=== PATIENT | female | born 1995 | race African-American/Black ===

== ENCOUNTER 2017-01-25 15:27 | Emergency (ER) | payer MEDICAID, OTHER ==
[~2017-01-25] VITALS: Ht 170.2 cm; Wt 72.6 kg
[2017-01-25 15:48] VITALS: BP 127/79
[2017-01-25] MEDS ORDERED: AMOXICILLIN500 MG ORAL (16:09)
[2017-01-25] MEDS ORDERED: PREDNISONE20 MG ORAL (16:09)
--- NOTE | 2017-01-25 17:46 | Emergency Room Report ---
History of Present Illness General Chief Complaint: Sore Throat Source: Patient Present Illness HPI The patient is a 21-year-old female presenting for sore throat and subjective fever for the past 10 days. She admits to a sick contact who was diagnosed with strep throat on this time. Pain described as an 8/10 dull ache and does not radiate. Worse with swallowing. She also admits to infrequent productive cough with yellow sputum. She denies any other symptoms including N, V, rash, RODRIGUEZ, dizziness, SOB Allergies: Coded Allergies: ASPIRIN (Unverified Allergy, Unknown, 01/25/17) Uncoded Allergies: ASPRIN (Allergy, Unknown, 01/25/17) Patient History Past Medical History: see triage record Pertinent Family History: none Last Menstrual Period: 01/09/17 Reviewed Nursing Documentation: PMH: Agreed, PSxH: Agreed Nursing Documentation-PMH Past Medical History: No Stated History Review of Systems All Other Systems: negative except mentioned in HPI Physical Exam Vital Signs Date Time Temp Pulse Resp B/P Pulse Ox O2 Delivery O2 Flow Rate FiO2 01/25/17 15:39 98.6 85 16 130/76 97 Room Air Sp02 EP Interpretation: reviewed, normal General Appearance: no apparent distress, alert, GCS 15, non-toxic Head: normocephalic, atraumatic Eyes: bilateral eye PERRL, bilateral eye normal inspection ENT: hearing grossly normal, no angioedema, normal voice, TMs + canals normal, uvula midline, tonsillar swelling, pharyngeal erythema, tonsillar exudate Neck: full range of motion, supple/symm/no masses Respiratory: chest non-tender, lungs clear, normal breath sounds, speaking full sentences Gastrointestinal: normal bowel sounds, non tender, soft, non-distended, no guarding, no rebound Genitourinary: normal inspection, no CVA tenderness Musculoskeletal: back normal, gait/station normal, normal range of motion, non- tender Neurologic: alert, oriented x3, responsive, motor strength/tone normal, sensory intact, speech normal Psychiatric: judgement/insight normal, memory normal, mood/affect normal, no suicidal/homicidal ideation Skin: normal color, no rash, warm/dry, well hydrated Medical Decision Making PA Attestation Dr. Hernández is my supervising physician. Patient management was discussed with my supervising physician Diagnostic Impression: Primary Impression: Pharyngitis, acute Qualified Codes: J02.9 - Acute pharyngitis, unspecified ER Course The patient is a 21-year-old female presenting for sore throat and subjective fever Differential diagnosis include but not limited to pharyngitis, sinusitis, AOM, bronchitis, PNA Physical exam: Vitals within normal limits. Afebrile. No apparent distress HEENT exam: There is bilateral tonsillar edema, erythema, and exudate. Uvula midline. Moist mucous membranes. There is bilateral cervical lymphadenopathy. Lungs are clear to auscultation bilaterally Skin is warm and dry. No rash The patient will be discharged home with a prescription for amoxicillin and prednisone and is given ER precautions. Patient will followup with primary care Last Vital Signs Date Time Temp Pulse Resp B/P Pulse Ox O2 Delivery O2 Flow Rate FiO2 01/25/17 16:15 98.4 87 15 127/79 98 Room Air Status: improved Disposition: HOME, SELF-CARE Condition: Improved Scripts Prednisone* (PREDNISONE*) 20 Mg Tablet 40 MG ORAL DAILY, #10 TAB Prov: DURGA PATEL 01/25/17 Amoxicillin* (AMOXIL*) 500 Mg Capsule 500 MG ORAL Q12HR, #20 CAP Prov: DURGA PATEL.A. 01/25/17 Referrals: [facility] (PCP) Patient Instructions: Pharyngitis Additional Instructions: I discussed my findings with the patient. All questions and concerns have been answered. Treatment and medication compliance have been addressed. I advised the patient that they need to follow up with PMD in 3-5 days. Return to ED if pain remains or worsens, cough worsens or remains, you notice blood in your sputum, you notice wheezing, you experience a fever, or if needed for any reason. Patient verbalized understanding of discharge instructions. DURGA PATEL Jan 25, 2017 17:46
== END 2017-01-25 16:16 | disposition home or self-care (01) ==
LOC: EMR 16:00
DX: J02.9 Acute pharyngitis, unspecified (principal); Z88.6 Allergy status to analgesic agent
CPT/HCPCS: 99284

== ENCOUNTER 2017-05-19 11:55 | Emergency (ER) | payer SELFPAY ==
[~2017-05-19] VITALS: Ht 170.2 cm; Wt 81.6 kg
[~2017-05-19 11:55] MED LIST: AMOXICILLIN500 MG ORAL; PREDNISONE20 MG ORAL
[2017-05-19 12:15] VITALS: BP 136/85
--- NOTE | 2017-05-19 12:19 | Emergency Room Report ---
History of Present Illness General Chief Complaint: Abdominal Pain Source: Patient Present Illness HPI The patient is a 22-year-old female who denies any medical history presenting for abd pain, nausea, vomiting, and diarrhea for the past 3 days. Pain is described as a 5/10 dull ache to the midabdomen and does not radiate. No known provoking or relieving factors. She states that she has had several episodes of vomiting and diarrhea daily. She denies any recent travel or known sick contacts. She denies any other symptoms including fever, chills, chest pain, shortness of breath, back pain, melena, hematochezia, dysuria, hematuria, vaginal DC LNMP 04/08/2017 and she states she has irregular periods. Allergies: Coded Allergies: ASPIRIN (Unverified Allergy, Severe, Hives, 05/19/17) Patient History Past Medical History: see triage record Pertinent Family History: none Last Menstrual Period: 04/08 Now: No Immunizations: UTD Reviewed Nursing Documentation: PMH: Agreed, PSxH: Agreed Nursing Documentation-PMH Past Medical History: No Stated History Review of Systems All Other Systems: negative except mentioned in HPI Physical Exam Vital Signs Date Time Temp Pulse Resp B/P (MAP) Pulse Ox O2 Delivery O2 Flow Rate FiO2 05/19/17 12:04 98.1 80 18 136/85 98 Room Air Sp02 EP Interpretation: reviewed, normal General Appearance: no apparent distress, alert, GCS 15, non-toxic Head: normocephalic, atraumatic Eyes: bilateral eye normal inspection, bilateral eye PERRL ENT: hearing grossly normal, normal pharynx, no angioedema, normal voice Neck: full range of motion, supple/symm/no masses Respiratory: chest non-tender, lungs clear, normal breath sounds, speaking full sentences Cardiovascular #1: regular rate, rhythm, no edema Gastrointestinal: normal bowel sounds, soft, non-distended, no guarding, tenderness - epigastric Rectal: deferred Genitourinary: normal inspection, no CVA tenderness Musculoskeletal: back normal, gait/station normal, normal range of motion, non- tender Neurologic: alert, oriented x3, responsive, motor strength/tone normal, sensory intact, speech normal Psychiatric: judgement/insight normal, memory normal, mood/affect normal, no suicidal/homicidal ideation Skin: normal color, no rash, warm/dry, well hydrated Lymphatic: no adenopathy Medical Decision Making PA Attestation Dr. Simms is my supervising physician. Patient management was discussed with my supervising physician Diagnostic Impression: Primary Impression: Qualified Codes: Z34.90 - Encounter for supervision of normal , unspecified, unspecified trimester Additional Impression: Urinary tract infection affecting ER Course The patient is a 22-year-old female who denies any medical history presenting for abd pain, nausea, vomiting, and diarrhea for the past 3 days. Differential diagnoses considered include but not limited to , threatened , incomplete , ectopic , hemorrhagic cyst, UTI, among others PE: vitals WNL. NAD Abdomen is soft. Nondistended. Normal bowel sounds. There is tenderness to palpation over epigastric region only. No CVA tenderness Blood work is remarkable for beta-hCG markedly elevated as well as urinalysis consistent with urinary tract infection The patient was informed of this and needs to have repeat of beta hCG in 48 hours. She is discharged home with prescription for antibiotics and vitamins. She needs to follow up with OB as soon as possible. ER precautions given Laboratory Tests Test 05/19/17 12:07 05/19/17 12:20 Urine Color Yellow Urine Appearance Slightly cloudy Urine pH 6 (4.5-8.0) Urine Specific [place] 1.020 (1.005-1.035) Urine Protein 2+ (NEGATIVE) H Urine Glucose (UA) Negative (NEGATIVE) Urine Ketones 1+ (NEGATIVE) H Urine Occult Blood 2+ (NEGATIVE) H Urine Nitrite Negative (NEGATIVE) Urine Bilirubin Negative (NEGATIVE) Urine Urobilinogen 4 MG/DL (0.0-1.0) H Urine Leukocyte Esterase 2+ (NEGATIVE) H Urine RBC 2-4 /HPF (0 - 2) H Urine WBC 5-10 /HPF (0 - 2) H Urine Squamous Epithelial Cells Many /LPF (NONE/OCC) H Urine Bacteria Few /HPF (NONE) Urine Mucus Many /LPF (NONE/OCC) H Urine HCG, Qualitative Positive White Blood Count 7.6 K/UL (4.8-10.8) Red Blood Count 4.47 M/UL (4.20-5.40) Hemoglobin 14.0 G/DL (12.0-16.0) Hematocrit 41.6 % (37.0-47.0) Mean Corpuscular Volume 93 FL (80-99) Mean Corpuscular Hemoglobin 31.4 PG (27.0-31.0) H Mean Corpuscular Hemoglobin Concent 33.7 G/DL (32.0-36.0) Red Cell Distribution Width 10.8 % (11.6-14.8) L Platelet Count 218 K/UL (150-450) Mean Platelet Volume 7.6 FL (6.5-10.1) Neutrophils (%) (Auto) 52.4 % (45.0-75.0) Lymphocytes (%) (Auto) 38.4 % (20.0-45.0) Monocytes (%) (Auto) 7.8 % (1.0-10.0) Eosinophils (%) (Auto) 0.3 % (0.0-3.0) Basophils (%) (Auto) 1.1 % (0.0-2.0) Prothrombin Time 10.7 SEC (9.30-11.50) Prothrombin Time INR 1.0 (0.9-1.1) PTT 30 SEC (23-33) Sodium Level 138 MMOL/L (136-145) Potassium Level 3.5 MMOL/L (3.5-5.1) Chloride Level 104 MMOL/L (98-107) Carbon Dioxide Level 24 MMOL/L (21-32) Anion Gap 10 mmol/L (5-15) Blood Urea Nitrogen 7 mg/dL (7-18) Creatinine 0.8 MG/DL (0.55-1.30) Estimate Glomerular Filtration Rate > 60 mL/min (>60) Glucose Level 88 MG/DL (74-106) Calcium Level 9.3 MG/DL (8.5-10.1) Total Bilirubin 1.0 MG/DL (0.2-1.0) Aspartate Amino Transferase (AST) 16 U/L (15-37) Alanine Aminotransferase (ALT) 16 U/L (12-78) Alkaline Phosphatase 63 U/L (46-116) Total Protein 8.0 G/DL (6.4-8.2) Albumin 4.0 G/DL (3.4-5.0) Globulin 4.0 g/dL Albumin/Globulin Ratio 1.0 (1.0-2.7) Lipase 99 U/L (73-393) Human Chorionic Gonadotropin, Quant 87352 mIU/mL (1-6) H Lab Results Impression CBC, CMP unremarkable UA shows infection beta-hCG elevated Last Vital Signs Date Time Temp Pulse Resp B/P (MAP) Pulse Ox O2 Delivery O2 Flow Rate FiO2 05/19/17 12:04 98.1 80 18 136/85 98 Room Air Status: improved Scripts Vit/Iron Fumarate/Fa ( VITAMINS TABLET) 1 Each Tablet 1 EACH PO DAILY, #30 TAB Prov: DURGA PATEL 05/19/17 Cephalexin* (KEFLEX*) 500 Mg Capsule 500 MG ORAL EVERY 12 HOURS, #14 CAP 0 Refills Prov: DURGA PATEL 05/19/17 DURGA PATEL May 19, 2017 12:19
[2017-05-19 12:53] LABS: APPEARANCE,URINE SLIGHTLY CLOUDY; KETONES,URINE 1+ (NEGATIVE); LEUKOCYTE ESTERASE ,URINE 2+ (NEGATIVE); NITRITE,URINE NEGATIVE (NEGATIVE); PH,URINE 6 (4.5-8.0); PROTEIN,URINE 2+ (NEGATIVE); UROBILINOGEN,URINE 4 MG/DL (0.0-1.0)
[2017-05-19 12:59] LABS: BASOPHILS % (AUTO) 1.1 % (0.0-2.0); EOSINOPHILS % (AUTO) 0.3 % (0.0-3.0); LYMPHOCYTES % (AUTO) 38.4 % (20.0-45.0); MEAN CORPUSCULAR HEMOGLOBIN 31.4 PG (27.0-31.0); MEAN CORPUSCULAR HGB CONC 33.7 G/DL (32.0-36.0); MEAN CORPUSCULAR VOLUME 93 FL (80-99); MEAN PLATELET VOLUME 7.6 FL (6.5-10.1); MONOCYTES % (AUTO) 7.8 % (1.0-10.0); NEUTROPHILS % (AUTO) 52.4 % (45.0-75.0); PLATELET COUNT 218 K/UL (150-450); RED BLOOD COUNT 4.47 M/UL (4.20-5.40); RED CELL DISTRIBUTION WIDTH 10.8 % (11.6-14.8); WHITE BLOOD COUNT 7.6 K/UL (4.8-10.8)
[2017-05-19 13:03] LABS: BACTERIA,URINE FEW /HPF; MUCUS,URINE MANY /LPF (NONE/OCC); SQUAMOUS EPITHELIAL CELL,UR MANY /LPF (NONE/OCC)
[2017-05-19 13:07] LABS: PROTHROMBIN TIME 10.7 SEC (9.30-11.50)
[2017-05-19 13:21] LABS: ALANINE AMINOTRANSFERASE 16 U/L (12-78); ANION GAP 10 mmol/L (5-15); ASPARTATE AMINO TRANSFERASE 16 U/L (15-37); CALCIUM 9.3 MG/DL (8.5-10.1); CARBON DIOXIDE 24 MMOL/L (21-32); CHLORIDE 104 MMOL/L (98-107); CREATININE 0.8 MG/DL (0.55-1.30); GLOMERULAR FILTRATION RATE > 60 mL/min (>60); LIPASE 99 U/L (73-393); POTASSIUM 3.5 MMOL/L (3.5-5.1); SODIUM 138 MMOL/L (136-145)
[2017-05-19] MEDS ORDERED: CEPHALEXIN500 MG ORAL (14:51)
[2017-05-19] MEDS ORDERED: PRENATAL VITAM1 EAC3 PO (14:51)
[2017-05-19 14:58] VITALS: BP 136/85
== END 2017-05-19 14:59 | disposition home or self-care (01) ==
LOC: EMR 13:11
DX: O23.41 Unspecified infection of urinary tract in pregnancy, first trimester (principal); O26.891 Other specified pregnancy related conditions, first trimester; R19.7 Diarrhea, unspecified; R11.2 Nausea with vomiting, unspecified; Z88.6 Allergy status to analgesic agent
CPT/HCPCS: 36415; 80053; 81003; 81025; 83690; 84702; 85025; 85610; 85730; 96361; 96374; 99284; J2405

== ENCOUNTER 2017-05-22 10:39 | Emergency (ER) | payer SELFPAY ==
[~2017-05-22] VITALS: Ht 170.2 cm; Wt 81.6 kg
[~2017-05-22 10:39] MED LIST changes: +CEPHALEXIN500 MG ORAL; +PRENATAL VITAM1 EAC3 PO
[2017-05-22] MEDS ORDERED: Metoclopramide 10mg/2ml Inj IVP ONE (11:00)
[2017-05-22 11:41] LABS: APPEARANCE,URINE CLOUDY; KETONES,URINE 1+ (NEGATIVE); LEUKOCYTE ESTERASE ,URINE 2+ (NEGATIVE); NITRITE,URINE NEGATIVE (NEGATIVE); PH,URINE 6 (4.5-8.0); PROTEIN,URINE 1+ (NEGATIVE); UROBILINOGEN,URINE 4 MG/DL (0.0-1.0)
--- NOTE | 2017-05-22 11:49 | Emergency Room Report ---
History of Present Illness General Chief Complaint: Complications Source: Patient Present Illness HPI Patient was here a few days ago reports that she is Approximately 9 weeks Patient reports she has continued nausea Denies any vaginal spotting or cramping denies any dysuria frequency Patient however was diagnosed with UTI previously Mom reports that he tried to see female clinic however the wait was too long and they presented back for further eval Allergies: Coded Allergies: ASPIRIN (Unverified Allergy, Severe, Hives, 05/19/17) Patient History Past Medical History: see triage record Pertinent Family History: none Now: Yes - 9 weeks Reviewed Nursing Documentation: PMH: Agreed, PSxH: Agreed Nursing Documentation-PMH Past Medical History: No Stated History Review of Systems All Other Systems: negative except mentioned in HPI Physical Exam Vital Signs Date Time Temp Pulse Resp B/P (MAP) Pulse Ox O2 Delivery O2 Flow Rate FiO2 05/22/17 10:45 97.7 75 18 136/89 99 Room Air Sp02 EP Interpretation: reviewed, normal General Appearance: well appearing, no apparent distress Head: normocephalic, atraumatic Eyes: bilateral eye PERRL, bilateral eye EOMI ENT: hearing grossly normal, normal pharynx, TMs + canals normal, uvula midline Neck: full range of motion, supple, no meningismus, no bony tend Respiratory: lungs clear, normal breath sounds, no rhonchi, no respiratory distress, no retraction, no accessory muscle use Cardiovascular #1: normal peripheral pulses, regular rate, rhythm, no edema, no gallop, no JVD, no murmur Gastrointestinal: normal bowel sounds, non tender, soft, no mass, no organomegaly, non-distended, no guarding, no hernia, no pulsatile mass, no rebound Genitourinary: no CVA tenderness Musculoskeletal: normal inspection Neurologic: oriented x3, responsive, teacher asst III-XII nml as tested, motor strength/ tone normal, sensory intact Psychiatric: mood/affect normal Skin: normal color, no rash, warm/dry, palpation normal Lymphatic: normal inspection, no adenopathy Medical Decision Making Diagnostic Impression: Primary Impression: Urinary tract infection affecting Additional Impressions: Hyperemesis gravidarum ER Course With the patient's history and examination, multiple differentials considered, including but not limited to , ectopic , ovarian torsion, gastritis, cholecystitis, pancreatitis, appendicitis Patient's ultrasound is appropriate there was a questionable small subchorionic hemorrhage Patient's beta Quant is increasing Patient has done better with acute intervention and requires close outpatient followup Labs Test 05/22/17 11:23 Urine Color Yellow Urine Appearance Cloudy Urine pH 6 (4.5-8.0) Urine Specific [place] 1.020 (1.005-1.035) Urine Protein 1+ (NEGATIVE) Urine Glucose (UA) Negative (NEGATIVE) Urine Ketones 1+ (NEGATIVE) Urine Occult Blood Negative (NEGATIVE) Urine Nitrite Negative (NEGATIVE) Urine Bilirubin Negative (NEGATIVE) Urine Urobilinogen 4 MG/DL (0.0-1.0) Urine Leukocyte Esterase 2+ (NEGATIVE) Urine RBC 0-2 /HPF (0 - 2) Urine WBC 2-4 /HPF (0 - 2) Urine Squamous Epithelial Cells Many /LPF (NONE/OCC) Urine Bacteria Few /HPF (NONE) Urine Mucus Moderate /LPF (NONE/OCC) Human Chorionic Gonadotropin, Quant 85617 mIU/mL (1-6) CT/MRI/US Diagnostic Results CT/MRI/US Diagnostic Results : Impression Pelvic ultrasound: Live intrauterine , heart tone visualized Last Vital Signs Date Time Temp Pulse Resp B/P (MAP) Pulse Ox O2 Delivery O2 Flow Rate FiO2 05/22/17 10:45 97.7 75 18 136/89 99 Room Air Status: improved Disposition: HOME, SELF-CARE Condition: Improved Scripts Metoclopramide Hcl* (REGLAN*) 5 Mg Tablet 5 MG ORAL EVERY 12 HOURS, #10 TAB Prov: LUCIANO MOORE D.O. 05/22/17 Additional Instructions: Patient is provided with the discharge instructions notified to follow up with primary doctor in the next 2-3 days otherwise return to the er with any worsening symptoms. Please note that this report is being documented using Dojo technology. This can lead to erroneous entry secondary to incorrect interpretation by the dictating instrument. LUCIANO MOORE D.O. May 22, 2017 11:49
[2017-05-22 11:59] LABS: RBC,URINE 0-2 /HPF (0 - 2)
[2017-05-22 12:00] LABS: BACTERIA,URINE FEW /HPF; MUCUS,URINE MODERATE /LPF (NONE/OCC); SQUAMOUS EPITHELIAL CELL,UR MANY /LPF (NONE/OCC)
[2017-05-22] MEDS ORDERED: REGLAN5 MG ORAL (13:25)
[2017-05-22 13:45] VITALS: BP 139/88
--- NOTE | 2017-05-22 15:28 | Diagnostic Imaging Report ---
Indication: PAIN, nausea and vomiting, positive test Technique: Transabdominal and transvaginal images Comparison: None Findings: Uterus measures 9.2 cm in length by 5.9 cm AP. Within the endometrium, there is a gestational sac. This demonstrates a yolk sac, and a pole with a crown-rump length of 9 mm, corresponding to an estimated gestational age of 6 weeks 6 days. Estimated gestational age by dates is also 6 weeks 6 days. Positive heart activity, heart rate 118 beats per minute. There is a small subchorionic hemorrhage demonstrated.. No myometrial abnormality. There is free cul-de-sac fluid. Right ovary measures 2.4 cm in length. Left ovary measures 2.6 cm in length. No adnexal mass. Impression: 6 week 6 day, by crown-rump length measurement, single live intrauterine . Small subchorionic hemorrhage Trace cul-de-sac fluid, presumed physiologic Negative for adnexal mass
== END 2017-05-22 13:50 | disposition home or self-care (01) ==
LOC: EMR 11:58
DX: O23.41 Unspecified infection of urinary tract in pregnancy, first trimester (principal); O21.0 Mild hyperemesis gravidarum; Z3A.09 9 weeks gestation of pregnancy
CPT/HCPCS: 36415; 76801; 76830; 81003; 84702; 96361; 96374; 99284; J2765

== ENCOUNTER 2017-09-07 14:55 | Emergency (ER) | payer MEDICAID, OTHER ==
[~2017-09-07] VITALS: Ht 170.2 cm; Wt 86.2 kg
[~2017-09-07 14:55] MED LIST changes: +REGLAN5 MG ORAL
[2017-09-07] MEDS ORDERED: FOLIC ACID1 MG ORAL (15:02)
[2017-09-07] MEDS ORDERED: METAMUCIL POWD174 GM PO (15:54)
[2017-09-07] MEDS ORDERED: ANUSOL-HC30 GM RC (15:54)
[2017-09-07 16:00] VITALS: BP 142/87
--- NOTE | 2017-09-07 21:53 | Emergency Room Report ---
History of Present Illness General Chief Complaint: Gastrointestinal Bleed Source: Patient Present Illness HPI Patient is a 22-year-old female at 22 weeks gestation presenting for constipation and bright red blood on stool. She states that she is currently having approximately 2 BMs per week which are painful and hard. Pain is a 10/10 sharp sensation with defecation only. No pain at this time. does not radiate. She denies other symptoms including vaginal bleeding, DC, fever, back pain, melena, vomiting Allergies: Coded Allergies: ASPIRIN (Unverified Allergy, Severe, Hives, 05/19/17) Patient History Past Medical History: see triage record Pertinent Family History: none Last Menstrual Period: 04/08/18 Now: Yes - 22 weeks : 1 Para: 0 Reviewed Nursing Documentation: PMH: Agreed, PSxH: Agreed Nursing Documentation-PMH Past Medical History: No Stated History Review of Systems All Other Systems: negative except mentioned in HPI Physical Exam Vital Signs Date Time Temp Pulse Resp B/P (MAP) Pulse Ox O2 Delivery O2 Flow Rate FiO2 09/07/17 14:57 98.2 94 16 142/87 99 Room Air Sp02 EP Interpretation: reviewed, normal General Appearance: no apparent distress, alert, GCS 15, non-toxic Head: normocephalic, atraumatic Eyes: bilateral eye normal inspection, bilateral eye PERRL Gastrointestinal: normal bowel sounds, non tender, soft, non-distended, no guarding, no rebound Rectal: normal rectal tone, hemorrhoids - external Musculoskeletal: back normal, gait/station normal, normal range of motion, non- tender Neurologic: alert, oriented x3, responsive, motor strength/tone normal, sensory intact, speech normal Psychiatric: judgement/insight normal, memory normal, mood/affect normal, no suicidal/homicidal ideation Skin: normal color, no rash, warm/dry, well hydrated Medical Decision Making PA Attestation Dr. Rondon is my supervising physician. Patient management was discussed with my supervising physician Diagnostic Impression: Primary Impression: External hemorrhoid Additional Impression: Constipation Qualified Codes: K59.00 - Constipation, unspecified ER Course Patient is a 22-year-old female at 22 weeks gestation presenting for constipation and bright red blood on stool. Differential diagnoses considered include but not limited to internal hemorrhoid , external hemorrhoid, cellulitis, abscess, rectal prolapse PE: NAD Abd is soft and non tender. There is an external hemorrhoid at approximately 6 o'clock. TTP. Erythematous. Pt is and will be DC'ed home with Metamucil and topical steroids. She was informed to drink plenty of fluids She will followup with OB as soon as possible ER precautions are given Last Vital Signs Date Time Temp Pulse Resp B/P (MAP) Pulse Ox O2 Delivery O2 Flow Rate FiO2 09/07/17 16:00 98.2 16 142/87 99 Room Air 09/07/17 14:57 94 Status: improved Disposition: HOME, SELF-CARE Condition: Improved Scripts Hydrocortisone Hc 2.5% Cream (ANUSOL-HC 2.5% CREAM) Y Cr 1 APPLIC RC Q12HR, #30 GM Prov: DURGA PATEL 09/07/17 Psyllium Husk/Aspartame (METAMUCIL POWDER) 174 Gm Powder 1 TSP PO DAILY, #174 GM Prov: DURGA PATEL 09/07/17 Referrals: [facility],REFERRING (PCP) Patient Instructions: Constipation, Adult, Hemorrhoids Additional Instructions: I discussed my findings with the patient. All questions and concerns have been answered. Treatment and medication compliance have been addressed. I advised the patient that they need to follow up with PMD in 3-5 days. Return to ED if symptoms worsen, new symptoms arise, or if needed for any reason. Patient verbalized understanding of discharge instructions. DURGA PATEL Sep 07, 2017 21:53
== END 2017-09-07 16:30 | disposition home or self-care (01) ==
LOC: EMR 15:35
DX: O26.892 Other specified pregnancy related conditions, second trimester (principal); K59.00 Constipation, unspecified; K64.4 Residual hemorrhoidal skin tags; Z88.6 Allergy status to analgesic agent; Z3A.22 22 weeks gestation of pregnancy
CPT/HCPCS: 99283